=== PATIENT | female | born 1945 | race Caucasian/White ===

== ENCOUNTER 2018-01-18 09:09 | Observation (INO) ==
[2018-01-18 10:05] LABS: Basophils % 0.6 % (0.0-0.8); Eosinophils # 0.1 10*3/uL (0.0-0.87); Eosinophils % 2.1 % (0.00-10.9); Hematocrit 41.3 VOL% (35.7-47.0); Immature Granulocytes % 0.1 %; Immature Granulocytes Absolute 0.01 #; Lymphocytes # 1.3 10*3/uL (1.4-4.0); Lymphocytes % 19.6 % (21.3-54.2); Mean Corpuscular HGB Conc 31.5 GM/DL (32-36); Mean Corpuscular Hemoglobin 27 PG (27-34); Mean Corpuscular Volume 85.9 FL (87-102); Mean Platelet Volume 11.9 FL (9.6-12.0); Monocytes # 0.5 10*3/uL (0.11-0.8); Monocytes % 6.7 % (1.7-12.7); Neutrophils # 4.8 10*3/uL (1.4-7.4); Neutrophils % 70.9 % (38.7-73.9); Platelet Count 166 T/CUMM (130-400); Red Blood Count 4.81 MC/CUMM (3.8-5.5); Red Cell Distribution Width 15.2 % (9.3-17.3); White Blood Count 6.7 T/CUMM (4-12)
[2018-01-18 10:13] LABS: PT Patient Result 10.6 SECS; Partial Thromboplastin Time 27.1 SECS (0-40)
[2018-01-18 10:37] LABS: Alanine Aminotransferase 52 U/L (13-56); Albumin 4.3 G/DL (3.4-5.0); Alkaline Phosphatase 114 U/L (45-117); Aspartate Amino Transferase 33 U/L (0-37); Blood Urea Nitrogen 19 MG/DL (7-18); Calcium 11.3 MG/DL (8.5-10.1); Glucose 106 MG/DL (74-106); Osmolality,Calculated 276.7 MOS/KG (273-304); Potassium 5.3 MMOL/L (3.5-5.1); Sodium 138 MMOL/L (136-145); Thyroid Stimulating Hormone 0.764 uIU/ml (0.358-3.74); Total Protein 7.5 G/DL (6.4-8.3); Troponin I Only < 0.015 NG/ML (0.00-0.045)
[2018-01-18] MEDS ORDERED: ZALEPLON 5 MG CAPSULE PO PRN (11:08)
[2018-01-18] MEDS ORDERED: MAGNESIUM SULF RIDER 4 GM in PREMIX 1 EACH IV PRN (11:08)
[2018-01-18] MEDS ORDERED: ONDANSETRON 4 MG/2 ML VIAL IV PRN (11:08)
[2018-01-18] MEDS ORDERED: DOCUSATE SODIUM 100 MG CAPSULE PO PRN (11:08)
[2018-01-18] MEDS ORDERED: LACTULOSE 20 GM/30 ML UDCUP PO PRN (11:08)
[2018-01-18] MEDS ORDERED: POTASSIUM CHLORIDE 20 MEQ TABLET PO PRN (11:08)
[2018-01-18] MEDS ORDERED: ACETAMINOPHEN 325 MG TABLET PO PRN (11:08)
[2018-01-18] MEDS ORDERED: GLUCAGON 1 MG VIAL IM PRN ×2 (13:18→18:35)
[2018-01-18] MEDS ORDERED: DEXTROSE 50% 25 GM/50 ML VIAL IV PRN ×2 (13:18→18:35)
[2018-01-18] MEDS ORDERED: hydrALAZINE 20 MG/1 ML VIAL IV PRN (13:19)
[2018-01-18] MEDS: INSULIN LISPRO 100 UNIT/ML SUBCUT SCH ×2 (16:54→21:07)
[2018-01-18] MEDS: SPIRONOLACTONE 100 MG TABLET PO SCH (17:10)
[2018-01-18] MEDS: VALSARTAN 80 MG TABLET PO SCH ×2 (17:10→21:02)
[2018-01-18] MEDS: amLODIPine 5 MG TABLET PO SCH (17:10)
[2018-01-18] MEDS: GLIMEPIRIDE 4 MG TABLET PO SCH (17:10)
[2018-01-18] MEDS: MAGNESIUM SULF RIDER 2 GM in PREMIX 1 EACH IV PRN (19:09)
[2018-01-18] MEDS ORDERED: diphenhydrAMINE CAP 25 MG CAPSULE PO PRN (19:34)
[2018-01-18] MEDS ORDERED: MAGNESIUM HYDROXIDE SUSP 30 ML UDCUP PO PRN (19:35)
[2018-01-18] MEDS ORDERED: SIMVASTATIN 40 MG TABLET PO SCH (21:00)
[2018-01-18] MEDS ORDERED: ENOXAPARIN 40 MG/0.4 ML SYRINGE SUBCUT SCH (21:00)
[2018-01-18] MEDS ORDERED: ASPIRIN EC 81 MG TABLET PO SCH (21:00)
[2018-01-19] MEDS: SPIRONOLACTONE 100 MG TABLET PO SCH ×2 (03:31→13:49)
[2018-01-19 04:59] LABS: Basophils % 0.6 % (0.0-0.8); Eosinophils # 0.2 10*3/uL (0.0-0.87); Eosinophils % 2.3 % (0.00-10.9); Hematocrit 38.6 VOL% (35.7-47.0); Hemoglobin 12.3 GM/DL (12.0-16.0); Immature Granulocytes % 0.2 %; Immature Granulocytes Absolute 0.01 #; Lymphocytes # 1.4 10*3/uL (1.4-4.0); Lymphocytes % 22.1 % (21.3-54.2); Mean Corpuscular HGB Conc 31.9 GM/DL (32-36); Mean Corpuscular Hemoglobin 27 PG (27-34); Mean Corpuscular Volume 84.5 FL (87-102); Mean Platelet Volume 11.5 FL (9.6-12.0); Monocytes # 0.4 10*3/uL (0.11-0.8); Monocytes % 6.4 % (1.7-12.7); Neutrophils # 4.5 10*3/uL (1.4-7.4); Neutrophils % 68.4 % (38.7-73.9); Platelet Count 163 T/CUMM (130-400); Red Blood Count 4.57 MC/CUMM (3.8-5.5); Red Cell Distribution Width 15.1 % (9.3-17.3); White Blood Count 6.5 T/CUMM (4-12)
[2018-01-19 05:28] LABS: Calcium 9.9 MG/DL (8.5-10.1); Osmolality,Calculated 279.4 MOS/KG (273-304); Potassium 4.3 MMOL/L (3.5-5.1); Risk Ratio 4.58; VLDL CHOLESTEROL 58.2 MG/DL
[2018-01-19] MEDS ORDERED: LEVOTHYROXINE 125 MCG TABLET PO SCH (07:00)
[2018-01-19] MEDS ORDERED: PANTOPRAZOLE 40 MG TABLET PO SCH (09:00)
[2018-01-19] MEDS: INSULIN LISPRO 100 UNIT/ML SUBCUT SCH ×3 (09:35→15:50)
[2018-01-19] MEDS: amLODIPine 5 MG TABLET PO SCH (09:36)
[2018-01-19] MEDS: GLIMEPIRIDE 4 MG TABLET PO SCH (09:38)
[2018-01-19] MEDS: VALSARTAN 80 MG TABLET PO SCH (09:38)
[2018-01-19] MEDS: MAGNESIUM SULF RIDER 2 GM in PREMIX 1 EACH IV PRN (13:49)
[2018-01-19 17:19] VITALS: BP 138/68
== END 2018-01-19 17:48 | disposition home or self-care (01) ==
LOC: N.EDINP 09:09 → N.ED 09:09 → N.TELES 12:44
PROVIDERS: ADMIT Internal Medicine Cardiovascular Disease; ATTEND Internal Medicine Cardiovascular Disease